=== PATIENT | male | born 1940 | race Caucasian/White ===

== ENCOUNTER → 2020-09-28 | Outpatient (CLI) | payer BC ==
[~2020-09-28] MED LIST: ALBU8.5H8 INH; CHOL10003 PO; CYAN-27 PO; FEBU80TA2 PO; FLUT1DIS5 IH; TAMS-11 PO; Vitamin B; ZOLP5TAB6 PO
== END | disposition home or self-care (01) ==
LOC: RAD 08:25
PROVIDERS: ATTEND Urology
DX: N20.0 Calculus of kidney (principal)
CPT/HCPCS: 74018

== ENCOUNTER 2020-09-29 06:55 | Day surgery (SDC) | payer BC ==
[~2020-09-29] VITALS: Ht 175.3 cm; Wt 59.7 kg
[2020-09-29] MEDS ORDERED: LACTATED RINGERS 1,000 ML IV SCH (07:22)
[2020-09-29] MEDS ORDERED: CHLORHEXIDINE 15 ML UDC MM STA (07:22)
[2020-09-29 07:35] VITALS: BP 119/80
[2020-09-29] MEDS ORDERED: ONDANSETRON 2MG/ML, 2ML ONE (09:50)
[2020-09-29] MEDS ORDERED: PROPOFOL 10 MG/ML, 20ML ONE (09:50)
[2020-09-29] MEDS ORDERED: DEXAMETHASONE 4 MG/ML, 1ML ONE (09:50)
[2020-09-29] MEDS ORDERED: GLYCOPYRROLATE 0.2MG/1ML, 5ML ONE (09:50)
[2020-09-29] MEDS ORDERED: NEOSTIGMINE 1 MG/ML, 10ML ONE (09:50)
[2020-09-29] MEDS ORDERED: KETOROLAC 30 MG/1 ML ONE (09:50)
[2020-09-29] MEDS ORDERED: ROCURONIUM 10 MG/ML,10ML ONE (09:50)
[2020-09-29] MEDS ORDERED: CEFAZOLIN 1,000 MG ONE (09:50)
[2020-09-29] MEDS ORDERED: FENTANYL PF 100 MCG/2ML ONE (09:57)
[2020-09-29] MEDS ORDERED: hydrALAzine 20 MG/ML, 1ML IV PRN (10:00)
[2020-09-29] MEDS ORDERED: LABETALOL 5MG/ML, 20ML IV PRN (10:00)
[2020-09-29] MEDS ORDERED: OXYcodone 5 MG/5 ML ORAL.SOL UDC PO PRN (10:00)
[2020-09-29] MEDS ORDERED: LORazepam 2 MG/ML, 1ML IVPush PRN (10:00)
[2020-09-29] MEDS ORDERED: PROMETHAZINE 25 MG/ML, 1ML IVPush PRN (10:00)
[2020-09-29] MEDS ORDERED: EPHEDRINE 50 MG/ML, 1ML IVPush PRN (10:00)
[2020-09-29] MEDS ORDERED: KETOROLAC 30 MG/1 ML IV PRN (10:00)
[2020-09-29] MEDS ORDERED: METHOCARBAMOL 1,000 MG in DEXTROSE 5% 100 ML IV PRN (10:00)
[2020-09-29] MEDS ORDERED: FENTANYL PF 100 MCG/2ML IV PRN (10:00)
[2020-09-29] MEDS ORDERED: HALOPERIDOL 5 MG/ML IV PRN (10:00)
[2020-09-29] MEDS ORDERED: HYDROmorphone 1 MG/ML, 1ML INJ IVPush PRN (10:00)
[2020-09-29] MEDS ORDERED: ACETAMINOPHEN 325 MG TABLET PO PRN (10:00)
[2020-09-29] MEDS ORDERED: OMNIPAQUE 350 MG/ML, 50 ML BOTTLE IV ONE (11:05)
[2020-09-29] MEDS ORDERED: OMNIPAQUE 350 MG/ML, 50 ML BOTTLE ONE ×2 (11:11→11:20)
== END 2020-09-29 12:15 | disposition home or self-care (01) ==
LOC: OUT 06:55 → EDSTATUS 09:15 → OUT 12:15
PROVIDERS: ATTEND Urology
DX: N20.1 Calculus of ureter (principal); Z20.828 Contact with and (suspected) exposure to other viral communicable diseases; J44.9 Chronic obstructive pulmonary disease, unspecified; E78.5 Hyperlipidemia, unspecified; Z79.899 Other long term (current) drug therapy; Z85.46 Personal history of malignant neoplasm of prostate; Z88.8 Allergy status to other drugs, medicaments and biological substances
CPT/HCPCS: 36415; 52356; 74420; 82360; 87635; 88300; 93005; C1726; C1758; C2617; J0690; J1100; J1885; J2405; J2704; J2710; J3010; J7120; Q9967

== ENCOUNTER → 2021-04-07 | Outpatient (CLI) | payer BC | END | disposition home or self-care (01) | LOC: LAB 08:46 | PROVIDERS: ATTEND Specialist | DX: N20.0 Calculus of kidney (principal) | CPT/HCPCS: 74018 ==